=== PATIENT | male | born 1995 | race Caucasian/White ===

== ENCOUNTER 2018-12-12 23:27 | Emergency (ER) | payer OTHER ==
[2018-12-13] MEDS: MAGNESIUM SULFATE 2 GM/50 ML 50 ML IVPB (00:33)
[2018-12-13] MEDS: SOD CHLORIDE 0.9% 500 ML IV (00:33)
[2018-12-13] MEDS: METHYLPREDNISOLONE 125 MG INJ IV (00:33)
[2018-12-13] MEDS: ALBUTEROL 0.083% (NEB) 2.5 MG/3 ML AMP NEB (00:43)
[2018-12-13] MEDS: IPRATROPIUM (NEB) 0.5 MG/2.5 ML AMP NEB (00:43)
== END 2018-12-13 02:04 | disposition home or self-care (01) ==
LOC: FTE 12-13 02:04
DX: J45.901 Unspecified asthma with (acute) exacerbation (principal)
CPT/HCPCS: 71045; 94664; 96365; 96375; 99284-25